=== PATIENT | male | born 1990 | race Hispanic/Latino ===

== ENCOUNTER 2023-11-23 18:19 | Emergency (ER) | payer OTHER ==
[~2023-11-23] VITALS: Ht 172.7 cm; Wt 99.7 kg
[2023-11-23 18:26] VITALS: BP 136/92
[2023-11-23] MEDS ORDERED: FLUORESCEIN SODIUM 1 MG EA OD ONE (18:30)
[2023-11-23] MEDS ORDERED: TETRACAINE HCL 0.5 %/4 ML SOL OD ONE (18:30)
[2023-11-23 18:31] VITALS: BP 120/81
[2023-11-23] MEDS ORDERED: SODIUM CHLORIDE 0.9% 1,000 ML IV ONE (18:40)
[2023-11-23 18:46] VITALS: BP 132/85
[2023-11-23] MEDS ORDERED: OFLOXACIN0.3 % OD (18:51)
[2023-11-23 19:51] VITALS: BP 120/81
== END 2023-11-23 19:51 | disposition home or self-care (01) | DRG 125 ==
LOC: ED 18:19
DX: H57.11 Ocular pain, right eye (principal)